=== PATIENT | male | born 1940 | race Caucasian/White ===

== ENCOUNTER 2017-02-10 15:07 | Inpatient (IN) | payer MEDICARE ==
[~2017-02-10] VITALS: Ht 162.6 cm; Wt 68.0 kg
[2017-02-10 16:11] LABS: BASOPHILS % 0.9 % (0.0-2.0); HEMATOCRIT. 37.3 % (42.0-52.0); HEMOGLOBIN. 12.6 g/dL (14.0-18.0); LYMPHOCYTES % 7.8 % (20.0-50.0); MEAN CORPUSCULAR HEMOGLOBIN 30.6 pg (28.0-32.0); MEAN CORPUSCULAR VOLUME 90.9 fL (80.0-94.0); MEAN PLATELET VOLUME 10.1 fl (7.4-10.4); MONOCYTES % 6.4 % (2.0-8.0); NEUTROPHILS % 83.9 % (40.0-76.0); PLATELET 308 x1000/uL (130-400); RED CELL DISTRIBUTION WIDTH 15.2 % (11.6-14.6)
[2017-02-10 16:14] LABS: CHLORIDE 107 mEq/L (98-107)
[2017-02-10 16:17] LABS: INR 1.1
[2017-02-10 16:21] LABS: CARBON DIOXIDE 24 mEq/L (21-32)
[2017-02-10 16:25] LABS: TROPONIN I < 0.02 ng/mL (0.00-0.04)
[2017-02-10] MEDS ORDERED: ASPIRIN 325MG TABLET PO ONE (16:45)
[2017-02-10 22:13] VITALS: BP 133/79
[2017-02-10] MEDS ORDERED: ASPI-1159 PO (22:47)
[2017-02-10] MEDS ORDERED: FLUO-124 PO (22:47)
[2017-02-10] MEDS ORDERED: ACET-2178 PO (22:47)
[2017-02-10] MEDS ORDERED: LITHTAB PO (22:47)
[2017-02-10] MEDS ORDERED: GABA-531 PO (22:47)
[2017-02-10] MEDS ORDERED: MULT-1146 PO (22:47)
[2017-02-10] MEDS ORDERED: METO-396 PO (22:47)
[2017-02-10 22:52] VITALS: BP 133/79
[2017-02-10] MEDS ORDERED: MAGNESIUM/ALUMINUM HYDROXIDE/SIMETHICONE 30ML UDC PO PRN (23:30)
[2017-02-10] MEDS ORDERED: CLONIDINE 0.1MG TABLET PO PRN (23:30)
[2017-02-10] MEDS ORDERED: DIPHENHYDRAMINE 50MG/ML VIAL IV PRN (23:30)
[2017-02-10] MEDS ORDERED: NA PHOS,M-B/NA PHOS,DI-BA ENEMA 118ML PR PRN (23:30)
[2017-02-10] MEDS ORDERED: ONDANSETRON HCL 4MG/2ML VIAL IV PRN (23:30)
[2017-02-10] MEDS ORDERED: IPRATROPIUM/ALBUTEROL 0.5-3(2.5)MG/3ML NEB INH PRN (23:30)
[2017-02-10] MEDS ORDERED: GUAIFENESIN 200MG/10ML SUGAR FREE UDC PO PRN (23:30)
[2017-02-10] MEDS ORDERED: ACETAMINOPHEN 325MG TABLET PO PRN (23:30)
[2017-02-10] MEDS ORDERED: ACETAMINOPHEN 650MG SUPP PR PRN (23:30)
[2017-02-10] MEDS ORDERED: DOCUSATE SODIUM 100MG CAPSULE PO PRN (23:30)
[2017-02-10] MEDS ORDERED: INFLUENZA VIRUS VACCINE 0.5ML SYR IM ONE (23:45)
[2017-02-11] VITALS: BP 141/72
[2017-02-11 00:59] LABS: CLARITY URINE CLEAR (CLEAR); COLOR URINE YELLOW (YELLOW); GLUCOSE URINE NEGATIVE (NEGATIVE); KETONES URINE NEGATIVE (NEGATIVE); LEUKOCYTE ESTERASE URINE NEGATIVE (NEGATIVE); NITRITE URINE NEGATIVE (NEGATIVE); OCCULT BLOOD URINE NEGATIVE (NEGATIVE); PH URINE 6.5 (4.5-8.0); PROTEIN URINE NEGATIVE (NEGATIVE); SPECIFIC GRAVITY URINE 1.019 (1.005-1.030); UROBILINOGEN URINE 0.2 E.U./dL (0.2-1.0)
[2017-02-11 01:20] LABS: *AMPHETAMINES SCREEN URINE NEGATIVE (NEGATIVE); *BARBITURATES SCREEN URINE NEGATIVE (NEGATIVE); *BENZODIAZEPINES SCREEN URINE NEGATIVE (NEGATIVE); *COCAINE SCREEN URINE NEGATIVE (NEGATIVE); CANNABINOID URINE SCREEN NEGATIVE (NEGATIVE); METHADONE URINE SCREEN NEGATIVE (NEGATIVE); OPIATES URINE SCREEN NEGATIVE (NEGATIVE); PHENCYCLIDINE URINE SCREEN NEGATIVE (NEGATIVE)
[2017-02-11 04:00] VITALS: BP 128/70
[2017-02-11] MEDS: SODIUM CHLORIDE 0.9% INJ 3ML FLUSH IVF SCH ×2 (06:52→13:32)
[2017-02-11 07:14] LABS: EOSINOPHILS % 1.8 % (0.0-5.0); HEMATOCRIT. 33.2 % (42.0-52.0); HEMOGLOBIN. 11.4 g/dL (14.0-18.0); LYMPHOCYTES % 12.8 % (20.0-50.0); MEAN CORPUSCULAR HEMOGLOBIN 30.7 pg (28.0-32.0); MEAN CORPUSCULAR VOLUME 89.4 fL (80.0-94.0); MEAN PLATELET VOLUME 10.2 fl (7.4-10.4); MONOCYTES % 7.6 % (2.0-8.0); NEUTROPHILS % 76.8 % (40.0-76.0); PLATELET 271 x1000/uL (130-400); RED BLOOD CELL COUNT 3.71 mill/uL (4.7-6.1); RED CELL DISTRIBUTION WIDTH 14.9 % (11.6-14.6)
[2017-02-11 07:58] LABS: CARBON DIOXIDE 25 mEq/L (21-32); CHLORIDE 107 mEq/L (98-107); CREATINE KINASE 33 IU/L (39-308); TROPONIN I < 0.02 ng/mL (0.00-0.04)
[2017-02-11 08:41] LABS: T4 FREE 0.93 ng/dL (0.76-1.46)
[2017-02-11] MEDS ORDERED: ASPIRIN 81MG TABLET PO SCH (09:00)
[2017-02-11] MEDS ORDERED: ENOXAPARIN 40MG/0.4ML SYR SUBCUT SCH (09:00)
[2017-02-11 12:00] VITALS: BP 117/57
[2017-02-11 16:00] VITALS: BP 112/62
[2017-02-11 18:10] VITALS: BP 112/62
[2017-02-11] MEDS ORDERED: REGADENOSON 0.4 MG/5 ML IV ONE (19:30)
== END 2017-02-11 19:55 | disposition home or self-care (01) | DRG 312 ==
LOC: EDSEX 15:22 → ER 15:22 → 5WST 16:45 → EDBEDREQ 16:47 → EDBEDREQTM 16:47 → ENRESERV 20:42 → 5WST 21:53
PROVIDERS: ADMIT Family Medicine; ATTEND Family Medicine
DX: R55 Syncope and collapse (principal); E11.9 Type 2 diabetes mellitus without complications; I44.7 Left bundle-branch block, unspecified; E78.5 Hyperlipidemia, unspecified; F32.9 Major depressive disorder, single episode, unspecified; I10 Essential (primary) hypertension; I25.10 Atherosclerotic heart disease of native coronary artery without angina pectoris; Z60.2 Problems related to living alone; Z79.899 Other long term (current) drug therapy; Z79.82 Long term (current) use of aspirin; Z88.1 Allergy status to other antibiotic agents; Z95.1 Presence of aortocoronary bypass graft; Z90.49 Acquired absence of other specified parts of digestive tract; Z87.891 Personal history of nicotine dependence
CPT/HCPCS: 36415; 70450; 71010; 80053; 80061; 80305; 81003; 82550; 83036; 83880; 84439; 84443; 84484; 85025; 85379; 85610; 90686; 93005; 93306; 93880; 99285; J1650